=== PATIENT | male | born 1985 | race Caucasian/White ===

== ENCOUNTER 2024-01-24 15:36 | Emergency (ER) | payer MEDICAID, SELFPAY ==
[2024-01-24 15:43] VITALS: BP 139/81; PULSE 73; O2SAT 96
[2024-01-24 15:45] VITALS: BP 139/81; PULSE 68; RESP 16; TEMP 36.7; O2SAT 97; BMI 29.8
--- NOTE | 2024-01-24 15:47 | ED_ITS ---
<Statement entered by Marianna Maldonado DO - 01/24/24 17:02> I was consulted by the SHELDON, and we discussed the complexity of the problems being addressed. I approved the treatment and management plan for this patient's care in the emergency department, thus performing a substantive portion of the medical decision making. Patient was unfortunately inadvertantly discharged prior to receiving Tdap. I attempted to call the patient several times but was unable to reach him. We did provide antibiotics ointment as well as instructions for close optometry follow up for management of his residual rust ring. Marianna Maldonado DO Discharge Plan Disposition Patient Disposition: Home, Self-Care Prescriptions Prescriptions: New ruichgtg-bhcvlfueel-rqyoelaku 3.5-400-10,000 co-fnrr-rldm/g ointment 1 applic ophthalmic (eye) BID 7 Days Qty: 3.5 0RF Referrals Follow up/Referrals: Provider,Referral, MD [Primary Care Provider] - See instructions Activity Restrictions/Add. Instructions Additional Instructions/Restrictions: Please call Dr. Martin at your eye doctor in the morning to schedule follow-up exam. Clinical Impressions Clinical Impression: Abrasion, corneal Qualifiers: Encounter type: initial encounter Laterality: left Qualified Code(s): S05.02XA - Injury of conjunctiva and corneal abrasion without foreign body, left eye, initial encounter Foreign body of left eye Qualifiers: Encounter type: initial encounter Qualified Code(s): T15.92XA - Foreign body on external eye, part unspecified, left eye, initial encounter Discharge ED Provider: Marianna Maldonado General Adult HPI General Chief complaint: Eye Problems Stated complaint: left eye pain and red may have metal in his eye Time Seen by Provider: 01/24/24 15:40 History of Present Illness HPI narrative: Patient presents for evaluation of foreign body to his left eye. Patient was grinding metal and a oscar got into his left eye. Patient has tried to remove the foreign body himself utilizing a Q-tip but unsuccessful. Patient reports pain and blurriness due to inability to keep his eye open to excessive tearing. He denies vision loss headache chest pain shortness of breath fever chills hemoptysis hematochezia melena nausea vomit diarrhea. Related Data Previous Rx's Medication Instructions Recorded pmtlrssc-rqlfvejezk-ytcoiinj 3.5 1 applic ophthalmic (eye) BID 7 01/24/24 mg-400 unit-10,000 unit/gram eye days #3.5 grams oint Allergies Allergy/AdvReac Type Severity Reaction Status Date / Time No Known Allergies Allergy Verified 01/24/24 15:54 [facility] Disclaimer: The information contained in this section may have been updated after the patient was seen, as this information can be updated by other users. Social History (Updated 01/24/24 @ 16:22 by KALPESH Nice) Smoking Status: Current every day smoker alcohol intake: never current occupational status: employed Travel in the last 8 weeks: None ROS Obtained: Yes Systems reviewed as appropriate & no additional complaints except as documented Physical Exam General General appearance: alert and in no apparent distress Expanded Eye Exam Eyelids: left: other (Foreign body at approximately 9 o'clock position at the border of the pupil and iris) Pupils: Right: regular, round and reactive Sclera/Conjunctival: left: injection and foreign body (Foreign body found in the left lower corner of the lid recess) Anterior chamber: bilateral: normal inspection Posterior chamber: bilateral: deferred Respiratory Respiratory exam: Present normal lung sounds bilaterally Cardiovascular Cardiovascular exam: Present regular rate and normal rhythm Neurological Exam Neurological exam: Present alert, oriented X3 and CN II-XII intact Medical Decision Making Marvel Inquiry Pt receiving controlled substance: No Vital Signs: 01/24/24 15:43 01/24/24 15:45 01/24/24 16:00 Temperature 98.1 F Temperature Source Oral Pulse Rate 73 61 Pulse Rate [Left] 68 Respiratory Rate 16 Blood Pressure 139/81 119/75 Blood Pressure [Right Arm] 139/81 Blood Pressure Mean [Right Arm] 100 Blood Pressure Source [Right Arm] Automatic Cuff Blood Pressure Position [Right Arm] Sitting 02 Sat by Pulse Oximetry 96 97 96 Oxygen Delivery Method Room Air 01/24/24 16:23 Temperature 98.1 F Temperature Source Pulse Rate 67 Pulse Rate [Left] Respiratory Rate 15 Blood Pressure 119/75 Blood Pressure [Right Arm] Blood Pressure Mean [Right Arm] Blood Pressure Source [Right Arm] Blood Pressure Position [Right Arm] 02 Sat by Pulse Oximetry Oxygen Delivery Method Room Air Orders (Tests/Meds): ED MEDICATIONS Discontinued Medications Generic Name Dose Route Start Last Admin Trade Name Freq PRN Reason Stop Dose Admin Tetanus/Reduced Diphtheria/Acell Pertussis 0.5 ml 01/24/24 16:24 Tet/Diphth/Pert-Adult 0.5ml Syringe IM 01/24/24 16:25 .ONCE ONE Medical Decision Narrative: In summary patient is a 9-year-old male who presents to the emergency department for evaluation of foreign body to his left eye. Patient is hemodynamically stable upon arrival, afebrile. Physical exam shows a foreign body at approximately the 9 o'clock position of his left cornea it is located approximately at the visual junction of the iris and the pupil. Additionally patient had a metallic foreign body in the left lower lid recess to the left. Differential diagnosis includes corneal perforation anterior chamber perforation versus simple corneal foreign body etc. Eye exam performed after administration of tetracaine topical and fluorescein staining. The only area that is highlighted is the above-mentioned foreign body. At that point utilizing the bevel of an 18-gauge needle I was able to remove 2 pieces of metallic foreign body embedded into the cornea. Arrest being remains. Thus patient is appropriate for discharge with neomycin ointment prescription with first dose given here and referral to Dr. Martin of my eye doctor . I had intended to get the patient a tetanus shot however he was discharged prior to me putting the order in. I attempted to reach the patient via his documented phone number however there is been no answer. Procedures Foreign Body Removal Site: left and other (I) Description of foreign body: other (Metal shard) Sedation/Analgesia: other (Ophthalmic tetracaine) Technique: manual removal Confirmed by:: direct visualization Complications: none Critical Care Critical Care Time Critical Care Time: No
[2024-01-24 16:00] VITALS: BP 119/75; PULSE 61; O2SAT 96
[2024-01-24 16:23] VITALS: BP 119/75; PULSE 67; RESP 15; TEMP 36.7; O2SAT 93
--- NOTE | 2024-01-24 16:26 | PC.NURSE ---
tdap order, ordered in after pt was dc, attempted to find pt in parking lot and call pt number listed in chart with no success at this time.
== END 2024-01-24 16:45 | disposition home or self-care (01) ==
PROVIDERS: Emergency Provider Emergency Medicine
DX: T15.92XA Foreign body on external eye, part unspecified, left eye, initial encounter (principal); S05.02XA Injury of conjunctiva and corneal abrasion without foreign body, left eye, initial encounter; W44.E0XA Non-magnetic metal object unspecified, entering into or through a natural orifice, initial encounter; Z23 Encounter for immunization
CPT/HCPCS: 65222; 90471; 99284

== ENCOUNTER 2024-04-24 18:18 | Emergency (ER) | payer MEDICAID, SELFPAY ==
[2024-04-24 18:19] VITALS: BP 131/71; PULSE 62; RESP 18; TEMP 37; O2SAT 99; BMI 25.7
--- NOTE | 2024-04-24 18:35 | XR_ITS ---
PROCEDURE INFORMATION: Exam: XR Orbits Exam date and time: 04/24/2024 7:04 PM Age: 39 years old Clinical indication: Injury or trauma; Other: Concern for lt open globe TECHNIQUE: Imaging protocol: XR of the orbits. Views: Minimum of 4 views COMPARISON: No relevant prior studies available. FINDINGS: Sinuses: Well aerated. No opacification. Bones/joints: There is a 1 mm hyperdense oscar projecting in the soft tissues anterior to the left orbital ridge, correlate for foreign body. No osseous injury is identified. Soft tissues: See Bones/joints finding. IMPRESSION: 1. There is a 1 mm hyperdense oscar projecting in the soft tissues anterior to the left orbital ridge, correlate for foreign body. 2. No osseous injury is identified.
--- NOTE | 2024-04-24 19:02 | HMH.EDGENADL ---
Discharge Plan Disposition Patient Disposition: Xfer Short-Term Hosp Chief Complaint: Eye Problems Prescriptions Prescriptions: No Action fkhzripl-hlfzdmzhpn-nciotvziz 3.5-400-10,000 ta-oups-ggds/g ointment 1 applic ophthalmic (eye) BID 7 Days Qty: 3.5 0RF Referrals Follow up/Referrals: Provider,Referral, MD [Primary Care Provider] - See instructions Clinical Impressions Clinical Impression: Thermal burn of cornea, Traumatic iritis Print Language Print Language: Azeri Discharge ED Provider: Andry Butler General Adult HPI General Chief complaint: Eye Problems Stated complaint: poss FB in LT eye Time Seen by Provider: 04/24/24 18:29 Mode of Arrival: Ambulatory Source of Information: Patient Limitations: No Limitations Description of Symptoms (Recalled from ER Triage Doc. by RN): PT REPORTS DRILLING METAL 3-4 DAYS AGO, FB NOTED TO LEFT EYE. SCLERA HAZY AND RED History of Present Illness HPI narrative: Please note that above description of symptoms, in this electronic medical record under categorization of recalled from ER triage doctor by RN are reflective of an initial nursing assessment, however, is not reflective of my full history and physical exam that was personally taken and clarified. Consequentially, this preceding description of symptoms, which may include the patient's categorized chief complaint in the EMR, do not reflect my personal clinical impression, and the ultimate description of history of present illness and patient stated complaints should be deferred to this section of the note. Unless stated otherwise or congruent with this section of the note, additional signs, symptoms, or incongruence should be interpreted as inaccurate with my clinical impression. Related Data Previous Rx's ?Medication ?Instructions ?Recorded lmpakmyh-kmbzthfrlu-haqsjyeg 3.5 1 applic ophthalmic (eye) BID 7 01/24/24 mg-400 unit-10,000 unit/gram eye days #3.5 grams oint Allergies Allergy/AdvReac Type Severity Reaction Status Date / Time No Known Allergies Allergy Verified 01/24/24 15:54 [facility] Disclaimer: The information contained in this section may have been updated after the patient was seen, as this information can be updated by other users. Social History (Updated 01/24/24 @ 16:22 by KALPESH Nice) Smoking Status: Never smoker alcohol intake: never current occupational status: employed Travel in the last 8 weeks: None ROS Obtained: Yes All systems reviewed & no additional complaints except as documented Physical Exam General General appearance: alert and anxious Head Head exam: atraumatic and normocephalic Eye Eye exam: Present EOMI, conjunctival redness and other (Patient has opacification of cornea just overlying pupil. Visual acuity in left eye is perceives light. EOMs are intact, but painful. Conjunctival injection. No evidence of hyphema, proptosis, entrapment, conjunctival hemorrhage, pupillary changes, obvious foreign body, or other abnormality) Neck Neck exam: Present normal inspection, full ROM and trachea midline Respiratory Respiratory exam: Absent respiratory distress, wheezes, stridor, accessory muscle use or prolonged expiratory phase Cardiovascular Cardiovascular exam: Present other (Pulses equal symmetric in upper and lower extremities) Abdominal Exam Abdominal exam: Present soft; Absent distention, tenderness or pulsatile mass Extremities Exam Extremities exam: Absent edema Neurological Exam Neurological exam: Present alert, oriented X3 and CN II-XII intact; Absent motor sensory deficit Skin Skin exam: Present warm and dry; Absent diaphoresis or erythema Medical Decision Making Medical Records Medical records reviewed: Yes I reviewed the patient's medical records. Marvel Inquiry Pt receiving controlled substance: No Marvel was queried for this patient: No Vital Signs: 04/24/24 18:19 Temperature 98.6 F Temperature Source Oral Pulse Rate [Radial] 62 Respiratory Rate 18 Blood Pressure [Left Arm] 131/71 Blood Pressure Mean [Left Arm] 91 Blood Pressure Source [Left Arm] Automatic Cuff Blood Pressure Position [Left Arm] Sitting 02 Sat by Pulse Oximetry 99 Oxygen Delivery Method Room Air Orders (Tests/Meds): ED MEDICATIONS Discontinued Medications Generic Name Dose Route Start Last Admin Trade Name Derrick PRN Reason Stop Dose Admin Acetaminophen 1,000 mg 04/24/24 18:45 Acetaminophen 500mg Tab PO 04/24/24 18:46 ONCE ONE Ibuprofen 600 mg 04/24/24 18:45 Ibuprofen 600 Mg Tablet PO 04/24/24 18:46 ONCE ONE Ondansetron HCl 4 mg 04/24/24 18:45 Ondansetron 4mg Odt SL 04/24/24 18:46 ONCE ONE Oxycodone HCl 5 mg 04/24/24 18:45 Oxycodone 5mg Immediate Release Tablet PO 04/24/24 18:46 ONCE ONE Tetanus/Reduced Diphtheria/Acell Pertussis 0.5 ml 09/08/24 18:35 Tet/Diphth/Pert-Adult 0.5ml Syringe IM 04/24/24 18:36 .ONCE ONE ORDERS Category Date Time Status Orbit XR left [XR orbit bilateral min 4V] Stat Exams 04/24/24 18:35 Taken Medical Decision Narrative: This is a 39-year-old male no relevant medical history presenting with foreign body in his left eye. Patient states that he was using a drill [id number] 3 days prior to this visit. A piece of hot metal flipped off and hit him in the eye. Since that time, vision and pain have both progressively worsened. At this point he states he can barely see anything out of his left eye. Pain is 10 out of 10, does not radiate. No other trauma sustained. History was obtained via conversation with patient. On arrival, patient hemodynamically stable, alert, [oriented x4, ][appropriate, ]GCS [15], moving all extremities spontaneously, pupils equal and reactive to light. Full physical exam performed and significant for Patient in mild distress secondary to pain holding his left eye. Has opacification of cornea just overlying pupil. Visual acuity in left eye is perceives light. EOMs are intact, but painful. Conjunctival injection. No evidence of hyphema, proptosis, entrapment, conjunctival hemorrhage, pupillary changes, obvious foreign body, or other abnormality. Topical tetracaine did not resolve pain. Worsening exam with 3 mm irregular focal uptake overlying the pupil. 24.1 after average of 5 measurements, 25.0 after average of another 5 measurements. Differential includes globe rupture, corneal ulcer, foreign body, thermal burn, among others. Patient placed on continuous cardiac monitoring and continuous pulse ox with initial blood pressure 131/71, heart rate 62, saturation 99% on room air. Patient was given Tdap, Tylenol, Motrin, oxycodone, Zofran for symptomatic management[ and correction of underlying abnormalities]. Workup independently interpreted and significant for no obvious metallic foreign body on x-rays of the orbits. On reevaluation, patient still in significant pain. Meds and Tdap were administered. [facility] was contacted and case was discussed at length, graciously excepted transfer for traumatic orbit injury. Given patient presentation, workup, history, this most likely represents thermal burn left eye. Erythromycin ointment was applied. Because patient high risk for clinical decompensation if discharged, deemed appropriate for transfer and inpatient admission. Results were relayed to patient who voiced understanding and patient was agreeable to transfer, inpatient admission, and management. Patient was graciously accepted and transferred to [facility] for further definitive management, under Dr. Woody. Machine Setter Supervisor disclaimer Much of this encounter note is an electronic channel machine operator spoken language to printed text. Electronic channel machine operator of the spoken language may permit errors. Although I have reviewed the note, some errors may still exist. Critical Care Critical Care Time Critical Care Time: Yes (ophthalmologic) Attestation: On 04/24/24, the high probability of a clinically significant, sudden or life threatening deterioration of the following system(s) required my full and direct attention, intervention and personal management. The time I documented below is in addition to time spent performing reported procedures but includes the following listed in this critical care notation. Total Time Total Critical Care Time: 45
--- NOTE | 2024-04-24 19:23 | PC.NURSE ---
call placed to [facility] at this time
--- NOTE | 2024-04-24 19:24 | PC.NURSE ---
notified rad of need for [employer] to [place].
[2024-04-24] MEDS: TET/DIPHTH/PERT-ADULT 0.5ML SYRINGE 0.5 ML IM (19:36)
[2024-04-24] MEDS: ONDANSETRON 4MG ODT 4 MG SL (19:37)
[2024-04-24] MEDS: OXYCODONE 5MG IMMEDIATE RELEASE TABLET 5 MG PO (19:38)
[2024-04-24] MEDS: ACETAMINOPHEN 500MG TAB 1000 MG PO (19:38)
[2024-04-24] MEDS: IBUPROFEN 600 MG TABLET PO (19:38)
[2024-04-24 19:50] VITALS: BP 121/71; PULSE 75; RESP 19; TEMP 36.8; O2SAT 98
== END 2024-04-24 19:51 | disposition short-term general hospital (02) ==
PROVIDERS: Emergency Provider Emergency Medicine
DX: T26.12XA Burn of cornea and conjunctival sac, left eye, initial encounter (principal); H20.9 Unspecified iridocyclitis; W44.D9XA Other magnetic metal objects entering into or through a natural orifice, initial encounter; Z23 Encounter for immunization; X18.XXXA Contact with other hot metals, initial encounter
CPT/HCPCS: 70200; 90471; 90715; 99285; Q0162